=== PATIENT | female | born 1985 | race Caucasian/White ===

== ENCOUNTER → 2020-03-29 11:37 | Outpatient (CLI) | payer OTHER, SELFPAY ==
--- NOTE | 2020-03-29 | DI.RAD.S_ITS ---
PROCEDURE: XR HIP W PEL IF DONE LT 2V INDICATIONS: LEFT HIP PAIN TECHNIQUE: AP pelvis with lateral view(s) of the left hip(s). COMPARISON: None. FINDINGS: Bones: No fractures or dislocations. Pelvic ring appears intact. No suspicious bony lesions. Soft tissues: The visualized bowel gas pattern is normal. No suspicious soft tissue calcifications. IMPRESSION: No trauma found, no narrowing of the hip joint identified. Note is made of a small ovoid 1.5 x 2.5 mm calcific radiodensity at the lateral border of the femoral head, likely a small accessory ossicle. Dictated by: Dmitriy Hairston M.D. on 03/29/2020 at 13:14 Approved by: Dmitriy Hairston M.D. on 03/29/2020 at 13:16
== END ==
PROVIDERS: Family Provider Internal Medicine; PCP Internal Medicine; Referring Provider Internal Medicine; Visit Provider Internal Medicine
DX: M25.552 Pain in left hip (principal)
CPT/HCPCS: 73502

== ENCOUNTER → 2021-03-25 16:12 | Outpatient (CLI) | payer OTHER, SELFPAY ==
--- NOTE | 2021-03-25 16:14 | DI.RAD.S_ITS ---
PROCEDURE: XR SHOULDER LT MIN 2V INDICATIONS: fall TECHNIQUE: 3 views of the shoulder were acquired. COMPARISON: None. FINDINGS: Bones: Minimally displaced fracture involving the greater tuberosity proximal humerus. Soft tissues: No suspicious soft tissue calcifications. IMPRESSION: Minimally displaced fracture involving the greater tuberosity of the proximal humerus. Dictated by: Mireya Geller MD, PhD on 03/25/2021 at 16:31 Approved by: Mireya Geller MD, PhD on 03/25/2021 at 16:32
== END ==
PROVIDERS: Family Provider Internal Medicine; PCP Internal Medicine; Referring Provider Physician Assistant; Visit Provider Physician Assistant
DX: M25.512 Pain in left shoulder (principal); S42.252A Displaced fracture of greater tuberosity of left humerus, initial encounter for closed fracture; W19.XXXA Unspecified fall, initial encounter
CPT/HCPCS: 73030

== ENCOUNTER → 2021-04-25 12:09 | Outpatient (CLI) | payer OTHER, SELFPAY ==
--- NOTE | 2021-04-25 | DI.CT.S_ITS ---
PROCEDURE: CT UE LT WO CON INDICATIONS: left SHOULDER PAIN TECHNIQUE: Noncontrast 1-1.5 mm thick sections acquired from the acromioclavicular joint to the inferior scapula, with coronal and sagittal reformatting. COMPARISON: [facility] [place], [place], XR SHOULDER 2+ VIEWS LEFT, 04/02/2021, 16:28. FINDINGS: Image quality: Excellent. Bones: Comminuted appearance of greater tuberosity fracture, with grossly unchanged alignment since radiograph dated 04/02/21. Soft tissues: No pathologic lymphadenopathy. The muscles and subcutaneous soft tissues appear grossly unremarkable. Visualized left lung unremarkable. IMPRESSION: Comminuted fracture involving the left humerus greater tuberosity. Dictated by: Jah Campbell M.D. on 04/25/2021 at 12:46 Approved by: Jah Campbell M.D. on 04/25/2021 at 12:50
== END ==
PROVIDERS: Family Provider Internal Medicine; PCP Internal Medicine; Referring Provider Orthopaedic Surgery; Visit Provider Orthopaedic Surgery
DX: S42.295A Other nondisplaced fracture of upper end of left humerus, initial encounter for closed fracture (principal)
CPT/HCPCS: 73200

== ENCOUNTER → 2021-06-14 14:13 | Outpatient (CLI) | payer OTHER, SELFPAY ==
--- NOTE | 2021-06-14 | DI.US.S_ITS ---
LIMITED ULTRASOUND OF RIGHT BREAST: 06/14/2021 CLINICAL: Palpable right breast lump by physician. Palpable right breast lump and focal pain felt by patient. Comparison is made to exam dated: 06/14/2021 mammogram [facility]. Real-time ultrasound of the right breast 6-10 o'clock, and retroareolar regions was performed. Jc scale images of the real-time examination were reviewed. No significant abnormalities were seen sonographically in the right breast. IMPRESSION: NEGATIVE There is no sonographic evidence of malignancy. There is no abnormality seen in the right breast to correspond with the palpable abnormality and pain, however, clinical followup is recommended. Follow-up with ACR/ACS guidelines. This exam was interpreted at Station ID: [id number]. Electronically Signed By: Gray londono/abisai:06/14/2021 15:50:45 letter sent: Clinical Evaluation Ultrasound BI-RADS: 1 Negative
--- NOTE | 2021-06-14 | DI.MG.S_ITS ---
BILATERAL DIGITAL DIAGNOSTIC MAMMOGRAM 3D/2D: 06/14/2021 CLINICAL: Baseline exam. Right breast lump. No prior exams were available for comparison. There are scattered fibroglandular elements in both breasts. No significant masses, calcifications, or other findings are seen in either breast. IMPRESSION: INCOMPLETE: NEEDS ADDITIONAL IMAGING EVALUATION There is no abnormality seen in the right breast to correspond with the palpable abnormality and pain in the lateral aspect. Targeted ultrasound is recommended for further evaluation, which will be performed immediately following this exam. This exam was interpreted at Station ID: [id number]. NOTE: For mammograms, a report in lay terms will be sent to the patient. Approximately 15% of breast malignancies will not be visualized mammographically. In the management of a palpable breast mass, a negative mammogram must not discourage biopsy of a clinically suspicious lesion. Electronically Signed By: Gray londono/abisai:06/14/2021 15:49:05 ACR BI-RADS Category 0: Incomplete [id number]
== END ==
PROVIDERS: Family Provider Internal Medicine; PCP Internal Medicine; Referring Provider Internal Medicine; Visit Provider Internal Medicine
DX: N63.10 Unspecified lump in the right breast, unspecified quadrant (principal); R92.2 Inconclusive mammogram
CPT/HCPCS: 76642; 77066; G0279

== ENCOUNTER → 2025-01-17 13:37 | Outpatient (CLI) | payer OTHER, SELFPAY ==
--- NOTE | 2025-01-17 13:38 | DI.MG.S_ITS ---
MM diagnostic mammo BI, US breast RT limited: 01/17/2025 BI-RADS: 1 CLINICAL: 39-year old female for bilateral diagnostic mammogram and right diagnostic breast ultrasound. Tyrer-Cuzick lifetime risk of 8.7%. No personal or first- degree family history of breast cancer. The patient reports a palpable abnormality (more than 2 years) and pain (more than 2 years) in the right breast. PRIOR EXAMS 06/14/2021. MAMMOGRAPHY TECHNIQUE: 2D and 3D (tomosynthesis) digital mammographic views obtained, with additional images as needed for full coverage. Current study was also evaluated with a Computer Aided Detection (CAD) system. ULTRASOUND TECHNIQUE Real-time lai scale imaging of the area of clinical interest was performed with image documentation. TARGETED Right Breast Ultrasound: Real-time ultrasound exam was performed focused to area of clinical and/or imaging concern. DENSITY C. The breasts are heterogeneously dense, which may obscure small masses. TISSUE COMPOSITION Right: Upper Outer at 10:00, 6 cm from nipple: (b) Homogeneous-fibroglandular. MAMMOGRAPHY FINDINGS Right: A marker overlies the breast at the site of palpable abnormality; there is no underlying mammographic correlate. Left: No suspicious mass, asymmetry, microcalcification, or other abnormality seen. ULTRASOUND FINDINGS Right: Upper Outer at 10:00, 6 cm from nipple: There is no sonographic correlate for the palpable abnormality. No suspicious sonographic finding present. IMPRESSION: * No evidence of malignancy. RECOMMENDATIONS Bilateral * Annual screening mammography. OVERALL ASSESSMENT CATEGORY BI-RADS-1: Negative. The [employer] recommends annual screening mammography beginning at age 40 for women with average risk of breast cancer. ELECTRONICALLY SIGNED: Jin Vaughan M.D. on 01/17/2025 at 02:54:30 PM PT Interpreting Station ID: [id number]
== END ==
LOC: MAMMO 13:38
PROVIDERS: Family Provider Internal Medicine; PCP Family Medicine; Referring Provider Family Medicine; Visit Provider Family Medicine
DX: N63.11 Unspecified lump in the right breast, upper outer quadrant (principal); R92.333 Mammographic heterogeneous density, bilateral breasts
CPT/HCPCS: 76642; 77066; G0279

== ENCOUNTER → 2025-05-25 09:21 | Outpatient (CLI) | payer OTHER, SELFPAY ==
--- NOTE | 2025-05-25 09:22 | DI.ECHO.S_ITS ---
[facility]+ [facility] : : [id number] : [place] : : [id number] : : Phone: [phone] Echocardiogram Report + + :Name: KING KING Study Date: 05/25/2025 Height: 63 in : :[facility] ReadingLocation: Weight: 133 lb : : Gender: Female BSA: 1.6 m2 : :: 1985 Age: 40 yrs BP: 128/91 mmHg: :Reason For Study: HYPERTENSION : :Ordering Physician: MORGAN, : :DIALLO Performed By: Ketan Martinez : :Referring: DIALLO MILLER : + + Interpretation Summary 1) Normal left ventricular thickness, size, wall motion, and systolic function (EF 60-65%). 2) Normal right ventricular size and function. 3) No significant valvular abnormalities. 4) No prior Echo available for comparison. Procedure: A two-dimensional transthoracic echocardiogram with color flow and Doppler was performed. The study quality was technically good. There is no prior echocardiogram noted for this patient. The patient was in normal sinus rhythm during the exam. Left Ventricle: The left ventricle is normal in size. Left ventricular wall thickness is borderline increased. There is no ventricular septal defect visualized. The ejection fraction is estimated to be 60-65%. There are no focal wall motion abnormalities. Diastolic parameters suggest probable normal left ventricular diastolic function and normal filling pressures. Right Ventricle: The right ventricle is normal in size and function. Atria: The left atrial size is normal. Right atrial size is normal. There is no Doppler evidence for an interatrial shunt. Mitral Valve: The mitral valve leaflets appear normal. There is no evidence of stenosis, fluttering, or prolapse. There is trace mitral regurgitation. Aortic Valve: The aortic valve is trileaflet. The aortic valve opens well. There is no aortic valve stenosis. No aortic regurgitation is present. Tricuspid Valve: The tricuspid valve leaflets are thin and pliable. There is trace tricuspid regurgitation. The right ventricular systolic pressure is estimated to be at least 26 mmHg based on an estimated right atrial pressure of 3 mm Hg. Pulmonic Valve: The pulmonic valve is not well seen, but is grossly normal. There is no pulmonic valvular regurgitation. Great Vessels: The aortic root is normal size. The dimensions of the ascending aorta are normal. No Doppler or imaging evidence of an aortic coarctation. The pulmonary artery is normal size. The IVC is of normal diameter and collapses greater than 50% with a sniff. This suggests a low right atrial pressure of 3 mm Hg. Pericardium/ Pleura There is no pericardial effusion. There is no pleural effusion. MMode/2D Measurements & Calculations LVIDd: 4.8 cm LVOT diam: 1.9 cm LVIDs: 3.2 cm Ao root diam: 3.4 cm FS: 33.4 % asc Aorta Diam: 3.0 cm EPSS: 0.37 cm Ao Arch Diam (Prox Trans): 1.7 cm IVSd: 1.1 cm LVPWd: 1.1 cm LV hale. diameter/BSA (cm/m^2): 2.9 LV sys. diameter/BSA (cm/m^2): 2.0 LA A2 area: 16.7 cm2 RA long axis: 4.5 cm LA A4 area: 18.7 cm2 RA area: 14.4 cm2 LA length (vol): 5.2 cm RA vol: 39.4 ml LA vol: 50.7 ml RA : 24.2 ml/m2 LA vol index: 31.2 ml/m2 IVC diam: 1.7 cm RVD1 (basal): 3.3 cm RVD2 (mid): 2.9 cm TAPSE: 2.6 cm Doppler Measurements & Calculations Ao V2 max: 173.6 cm/sec LVOT Max Connor: 130.4 cm/sec Ao V2 mean: 124.5 cm/sec LV V1 max P.8 mmHg Ao max P.1 mmHg LV V1 VTI: 30.0 cm Ao mean P.9 mmHg CONNER(I,D): 2.3 cm2 Ao V2 VTI: 37.4 cm CONNER(V,D): 2.2 cm2 sev ratio: 0.80 CONNER indexed to BSA (cm^2/m^2): 1.4 MV E max connor: 84.9 cm/sec TR max connor: 239.0 cm/sec MV A max connor: 57.6 cm/sec TR max P.9 mmHg MV E/A: 1.5 PA V2 max: 114.8 cm/sec Med Peak E' Connor: 10.2 cm/sec PA V2 mean: 82.8 cm/sec E/E' med: 8.3 PA mean P.0 mmHg Lat Peak E' Connor: 12.6 cm/sec PA pr(Accel): 22.5 mmHg E/E' lat: 6.8 E/e' average: 7.5 MV dec time: 0.21 sec SV(LVOT): 85.8 ml Reading Physician:06:25 PM
== END ==
PROVIDERS: Family Provider Internal Medicine; PCP Family Medicine; Referring Provider Internal Medicine Cardiovascular Disease; Visit Provider Internal Medicine Cardiovascular Disease
DX: R01.1 Cardiac murmur, unspecified (principal); I10 Essential (primary) hypertension
CPT/HCPCS: 93306